=== PATIENT | male | born 1960 | race Caucasian/White ===

== ENCOUNTER 2016-11-09 13:33 | Day surgery (SDC) | payer OTHER ==
[2016-11-09] MEDS ORDERED: MIDAZOLAM HCL 2MG/2ML VIAL IV ONE (14:00)
[2016-11-09] MEDS ORDERED: LIDOCAINE 2% MDV (20MG/ML) 20ML VIAL IV ONE (14:00)
[2016-11-09] MEDS ORDERED: PROPOFOL 10 MG/ML VIAL IV ONE (14:00)
--- NOTE | 2016-11-14 18:31 | Operative Note ---
DATE OF SURGERY: 11/09/2016 OPERATION: COLONOSCOPY. PREOPERATIVE DIAGNOSIS: History of colon polyp. POSTOPERATIVE DIAGNOSIS: Ascending diverticulum, otherwise normal exam. PREPARATION QUALITY: Good to excellent. SPECIMENS: None. ESTIMATED BLOOD LOSS: None. COMPLICATIONS: None apparent. PROCEDURE: After informed consent was obtained from the patient, he was placed in the left lateral decubitus position in the endoscopy suite, sedated and monitored by the department of anesthesia. Digital rectal examination was unremarkable. A well-lubricated [id number] colonoscope was inserted into the rectum and advanced to the cecum. Preparation quality was good to excellent. There was a diverticulum seen in the ascending colon. The remainder of the ascending colon, cecum, transverse colon, descending colon, sigmoid colon, and rectum were otherwise unremarkable. Forward and J-turn views of the rectum and anorectum were unrevealing. The endoscope was straightened, the rectal ampulla deflated, and the endoscope was removed. RECOMMENDATIONS: I would suggest the patient undergo repeat exam in 10 years, as it appears his prior polyp was hyperplastic. He should follow a high-fiber diet and resume his medications. As always, thank you for allowing me to participate in the healthcare of your patients. CC: CARA MORGAN D.O. MARZENA
== END 2016-11-09 15:10 | disposition home or self-care (01) ==
LOC: HOP 13:33
PROVIDERS: ATTEND Internal Medicine Gastroenterology
DX: Z86.010 Personal history of colon polyps (principal); E78.00 Pure hypercholesterolemia, unspecified
CPT/HCPCS: 00810; G0121